=== PATIENT | female | born 1955 | race American Indian/Alaskan Native ===

== ENCOUNTER 2016-10-24 18:11 | Emergency (ER) | payer SELFPAY ==
[2016-10-24 20:35] LABS: Bilirubin,Urine NEG (Negative); Blood,Urine NEG (Negative); Ketones,Urine NEG (Negative); Leukocyte Esterase,Urine NEG (Negative); Mucus,Urine FEW /HPF; Nitrite,Urine NEG (Negative); Protein,Urine <15 mg/dL mg/dL (Negative)
[2016-10-24] MEDS ORDERED: KEFLEX PO ONE (21:53)
--- NOTE | 2016-10-24 21:53 | Emergency Department Report ---
ED General Adult HPI - General Chief complaint: Abdominal Pain Stated complaint: UTI/SKIN ITCHING/COUGH Time Seen by Provider: 10/24/16 20:56 Source: patient Mode of arrival: Ambulatory Limitations: No Limitations - History of Present Illness Initial comments: PT states she has been noticing brown stains on her panty liner. PT states she has a hx of dm, urinary incontinence and frequent UTIs. PT states she noticed the change in color 1.5- 2 weeks ago. PT states she has been staying at homeless shelters for the last week. PT states she had to leave the residential she was at last night because it was aggravating her allergies(cough, congestion , itching - without rash). PT states she has another residential she can stay at, however, she needs a doctor's note. PT states she has a hx of a hysterectomy MD Complaint: hematuria -: Gradual, week(s) (1.5 week) Severity scale (0 -10): 0 Consistency: intermittent Associated Symptoms: denies: fever/chills, loss of appetite, nausea/vomiting - Related Data Previous Rx's Medication Instructions Recorded Last Taken Type Cephalexin [Keflex] 500 mg PO Q12HR #14 cap 10/24/16 Unknown Rx Fluticasone [Flonase] 2 spray NS QDAY #1 bottle 10/24/16 Unknown Rx Allergies Allergy/AdvReac Type Severity Reaction Status Date / Time diphenhydramine HCl Allergy Hives Verified 10/24/16 19:44 [From Triaminic Allergy] morphine Allergy Unknown Verified 10/24/16 19:44 codeine AdvReac Headache Verified 10/24/16 19:44 ED Review of Systems ROS: Stated complaint: UTI/SKIN ITCHING/COUGH Other details as noted in HPI Comment: All other systems reviewed and negative Constitutional: denies: fever, malaise Eyes: denies: vision change ENT: congestion (when staying at [facility] ) Respiratory: cough (only when at [facility] Cardiovascular: denies: chest pain Endocrine: denies: increased thirst, increased urine Gastrointestinal: denies: abdominal pain, nausea, vomiting, hematemesis, melena , hematochezia Genitourinary: hematuria, other (denies vaginal bleeding). denies: dysuria, frequency, discharge Skin: other (itching when staying at [facility]. denies rash or bites). denies: rash, change in color Neurological: denies: weakness, numbness, paresthesias ED Past Medical Hx - Past Medical History Hx Hypertension: Yes Hx Diabetes: Yes Hx Arthritis: Yes Hx Asthma: Yes Additional medical history: SLEEP APNEA,STRESS INCONTINENCE,UTI'S,SHINGLES, WHOOPING COUGH,IRREGULAR HEART WITH OCC RACING - Surgical History Additional Surgical History: HYSTERECTOMY-98',BARIATRIC GASTRIC SLEEVE - Social History Smoking Status: Never Smoker Substance Use Type: None - Medications Home Medications: Home Medications Medication Instructions Recorded Confirmed Last Taken Type Cephalexin [Keflex] 500 mg PO Q12HR #14 cap 10/24/16 Unknown Rx Fluticasone [Flonase] 2 spray NS QDAY #1 bottle 10/24/16 Unknown Rx ED Physical Exam - General Limitations: No Limitations General appearance: alert, in no apparent distress, obese - Head Head exam: Present: atraumatic, normocephalic, normal inspection - Eye Eye exam: Present: normal appearance, PERRL, EOMI. Absent: conjunctival injection - ENT ENT exam: Present: normal exam, mucous membranes moist, normal external ear exam - Neck Neck exam: Present: normal inspection, full ROM. Absent: tenderness, lymphadenopathy - Respiratory Respiratory exam: Present: normal lung sounds bilaterally. Absent: respiratory distress, chest wall tenderness, accessory muscle use - Cardiovascular Cardiovascular Exam: Present: regular rate, normal rhythm, normal heart sounds - GI/Abdominal GI/Abdominal exam: Present: soft, normal bowel sounds. Absent: tenderness, guarding, rebound - Extremities Exam Extremities exam: Present: normal inspection, full ROM, normal capillary refill. Absent: tenderness, pedal edema, joint swelling, calf tenderness - Back Exam Back exam: Present: normal inspection, full ROM. Absent: tenderness, CVA tenderness (R), CVA tenderness (L), muscle spasm, paraspinal tenderness, vertebral tenderness, rash noted - Neurological Exam Neurological exam: Present: alert, oriented X3, CN II-XII intact, normal gait - Expanded Neurological Exam Expanded Patient oriented to: Present: person, place, time Speech: Present: fluid speech Best Eye Response (Manav): (4) open spontaneously Best Motor Response (Manav): (6) obeys commands Best Verbal Response (Manav): (5) oriented [place] Total: 15 - Psychiatric Psychiatric exam: Present: normal affect, normal mood - Skin Skin exam: Present: warm, dry, intact, normal color. Absent: rash, erythema, urticaria, vesicles ED Course Vital Signs 10/24/16 10/24/16 19:35 23:00 Temperature 98.6 F Pulse Rate 50 L 58 L Respiratory 18 18 Rate Blood Pressure 157/91 Blood Pressure 159/83 [Left] O2 Sat by Pulse 98 100 Oximetry - Reevaluation(s) Reevaluation #1: 10/24/16 22:15 PT aware of lab results and plan of care. due to pt's co morbidities, will treat empirically for UTI. PT advised to avoid known triggers of her allergic rhinitis. PT does not have rash. PT offered empiric treatment for scabies due to her recently staying in residential and her itching. However, pt declined. - Pulse Oximetry Interpretation Digit-Finger Initial Pulse Oximetry Readin Actions Taken: none ED Medical Decision Making - Lab Data Laboratory Results - last 72 hr 10/24/16 10/24/16 19:51 20:15 POC Glucose 214 H Urine Color Yellow Urine Turbidity Clear Urine pH 5.0 Ur Specific [place] 1.030 Urine Protein <15 mg/dl Urine Glucose (UA) >=500 Urine Ketones Neg Urine Blood Neg Urine Nitrite Neg Urine Bilirubin Neg Urine Urobilinogen 2.0 Ur Leukocyte Esterase Neg Urine WBC (Auto) 3.0 Urine RBC (Auto) 12.0 U Epithel Cells (Auto) 3.0 Urine Mucus Few Urine culture pending. - Differential Diagnosis uti, allergic reaction Critical Care Time: No Critical care attestation.: If time is entered above; I have spent that time in minutes in the direct care of this critically ill patient, excluding procedure time. ED Disposition Clinical Impression: Hematuria Qualifiers: Hematuria type: unspecified type Qualified Code(s): R31.9 - Hematuria, unspecified Allergic rhinitis due to allergen Qualifiers: Chronicity: acute Allergic rhinitis trigger: unspecified Allergic rhinitis seasonality: unspecified seasonality Qualified Code(s): J30.9 - Allergic rhinitis, unspecified Disposition: DC-01 TO HOME OR SELFCARE Is pt being admited?: No Does the pt Need Aspirin: No Condition: Stable Instructions: Allergic Rhinitis (ED), Acute Hematuria (ED), Allergies (ED), Abdominal Pain (ED) Additional Instructions: Follow up with PCP in 3-5 days Have your BP rechecked on follow up Return to the ED if you have fevers, chills, nausea, vomiting or rash Prescriptions: Cephalexin [Keflex] 500 mg PO Q12HR #14 cap Fluticasone [Flonase] 2 spray NS QDAY #1 bottle Referrals: PRIMARY CAREMD [Primary Care Provider] - 3-5 Days KENNETH SPARKS MD [Staff Physician] - 3-5 Days [facility] [Outside] - 3-5 Days Forms: Work/School Release Form(ED) Time of Disposition: 22:18
[2016-10-24 23:01] VITALS: BP 159/83
== END 2016-10-24 23:01 | disposition home or self-care (01) ==
LOC: ED 18:11
DX: J30.9 Allergic rhinitis, unspecified (principal); R31.9 Hematuria, unspecified; I10 Essential (primary) hypertension; J45.909 Unspecified asthma, uncomplicated
CPT/HCPCS: 81001; 82962; 87086